=== PATIENT | male | born 1995 | race Caucasian/White ===

== ENCOUNTER 2019-04-09 22:19 | Emergency (ER) | payer MEDICAID ==
[~2019-04-09] VITALS: Ht 185.4 cm; Wt 94.8 kg
[2019-04-09 22:24] VITALS: BP 156/78
[2019-04-09] MEDS ORDERED: HYDROcodone/APAP 5/325 TABLET ONE (22:53)
[2019-04-09] MEDS ORDERED: HYDROcodone/APAP 5/325 TABLET PO ONE (23:00)
== END 2019-04-09 23:16 | disposition home or self-care (01) ==
LOC: ED 23:15
DX: K02.9 Dental caries, unspecified (principal); K08.89 Other specified disorders of teeth and supporting structures; F17.210 Nicotine dependence, cigarettes, uncomplicated
CPT/HCPCS: 99283

== ENCOUNTER 2019-04-18 00:24 | Emergency (ER) | payer MEDICAID ==
[~2019-04-18] VITALS: Ht 185.4 cm; Wt 92.2 kg
[2019-04-18 00:25] VITALS: BP 144/65
== END 2019-04-18 01:57 ==
LOC: ED 01:00
DX: R42 Dizziness and giddiness (principal); Z53.21 Procedure and treatment not carried out due to patient leaving prior to being seen by health care provider